=== PATIENT | female | born 1990 | race Caucasian/White ===

== ENCOUNTER 2017-12-16 15:45 | Emergency (ER) | payer MEDICAID ==
[~2017-12-16] VITALS: Ht 160 cm; Wt 52.2 kg
[2017-12-16 16:03] LABS: URINE BILIRUBIN NEGATIVE (Negative); URINE BLOOD NEGATIVE (Negative); URINE CLARITY CLEAR; URINE COLOR YELLOW; URINE GLUCOSE-RANDOM NEGATIVE (Negative); URINE KETONES NEGATIVE (Negative); URINE LEUKOCYTES-REFLEX NEGATIVE (Negative); URINE NITRITE-REFLEX NEGATIVE (Negative); URINE PROTEIN NEGATIVE (Negative); URINE SPECIFIC GRAVITY 1.025 (1.005-1.030); URINE UROBILINOGEN 0.2 E.U./dl (0.2-1.0)
[2017-12-16] MEDS ORDERED: MIRALAX17 GM PO (16:53)
[2017-12-16] MEDS ORDERED: CARAFATE 1 GM TA1 GM PO (16:53)
[2017-12-16] MEDS ORDERED: BENTYL 20 MG TA20 M1 PO (16:53)
[2017-12-16 17:06] VITALS: BP 125/86
== END 2017-12-16 17:06 | disposition home or self-care (01) ==
LOC: M.ERS 15:45
PROVIDERS: Nurse Practitioner Family
DX: K59.00 Constipation, unspecified (principal)

== ENCOUNTER 2018-08-28 19:24 | Emergency (ER) | payer MEDICAID, OTHER ==
[~2018-08-28] VITALS: Ht 160 cm; Wt 54.4 kg
[~2018-08-28 19:24] MED LIST: BENTYL 20 MG TA20 M1 PO; CARAFATE 1 GM TA1 GM PO; MIRALAX17 GM PO
[2018-08-28] MEDS ORDERED: ADDERALL 20 MG20 MG PO (19:37)
[2018-08-28] MEDS ORDERED: ACETAMINOPHEN-1 EAC1 PO (21:09)
[2018-08-28] MEDS ORDERED: IBUPROFEN 600600 M1 PO (21:09)
[2018-08-28 21:40] VITALS: BP 129/85
== END 2018-08-28 21:40 | disposition home or self-care (01) ==
LOC: M.ERS 19:24
DX: S92.531A Displaced fracture of distal phalanx of right lesser toe(s), initial encounter for closed fracture (principal); S09.8XXA Other specified injuries of head, initial encounter; Y04.8XXA Assault by other bodily force, initial encounter; Y93.89 Activity, other specified; Y92.89 Other specified places as the place of occurrence of the external cause; Y99.8 Other external cause status

== ENCOUNTER 2018-09-30 22:53 | Emergency (ER) | payer OTHER, MEDICAID ==
[~2018-09-30] VITALS: Ht 160 cm; Wt 54.4 kg
[~2018-09-30 22:53] MED LIST changes: +ACETAMINOPHEN-1 EAC1 PO; +ADDERALL 20 MG20 MG PO; +IBUPROFEN 600600 M1 PO
[2018-09-30] MEDS ORDERED: PERCOCET PO (23:04)
[2018-09-30] MEDS ORDERED: NORCO 10-325 T1 EACH PO (23:09)
[2018-09-30] MEDS ORDERED: VALIUM5 MG (23:10)
[2018-09-30] MEDS ORDERED: PHENERGAN 25 MG25 M1 (23:10)
[2018-10-01 01:18] VITALS: BP 105/64
== END 2018-10-01 01:18 | disposition home or self-care (01) ==
LOC: M.ERS 22:53
DX: M54.5 Low back pain (principal)

== ENCOUNTER 2021-05-01 18:50 | Emergency (ER) | payer OTHER, MEDICAID ==
[~2021-05-01] VITALS: Ht 160 cm; Wt 50.8 kg
[~2021-05-01 18:50] MED LIST changes: +NORCO 10-325 T1 EACH PO; +PERCOCET PO; +PHENERGAN 25 MG25 M1; +VALIUM5 MG
[2021-05-01] MEDS ORDERED: TOPROL XL25 MG PO (19:02)
[2021-05-01] MEDS ORDERED: ADDERALL 10 MG10 MG PO (19:02)
[2021-05-01 19:59] LABS: ABSOLUTE LYMPHOCYTES 1.2 thou/uL (0.8-5.3); ABSOLUTE MONOCYTES 0.3 thou/uL (0.0-1.2); ABSOLUTE NEUTROPHILS 3.7 thou/uL (1.6-8.1); BASOPHILS 0.8 %; EOSINOPHILS 0.3 %; HEMATOCRIT 40.8 % (37.0-47.0); LYMPHOCYTES 23.5 %; MCH 33.6 pg (26.0-34.0); MCHC 34.2 g/dL (28.0-37.0); MCV 98.1 fL (80.0-100.0); MONOCYTES 5.6 %; MPV 7.9 fl. (7.2-11.1); NUCLEATED RBCS 0 /100WBC; PLATELET COUNT* 246 thou/uL (150-400); POLYS 69.8 %; RBC 4.16 mil/uL (4.20-5.00); RDW-CV 12.2 % (10.5-14.5); WBC 5.3 thou/uL (4.0-11.0)
[2021-05-01 20:08] LABS: URINE BILIRUBIN NEGATIVE (Negative); URINE BLOOD 1+ (Negative); URINE COLOR YELLOW; URINE GLUCOSE-RANDOM NEGATIVE (Negative); URINE KETONES TRACE (Negative); URINE LEUKOCYTES-REFLEX NEGATIVE (Negative); URINE NITRITE-REFLEX NEGATIVE (Negative); URINE PROTEIN NEGATIVE (Negative); URINE SPECIFIC GRAVITY 1.015 (1.005-1.030); URINE UROBILINOGEN 0.2 E.U./dl (0.2-1.0)
[2021-05-01 20:10] LABS: URINE CLARITY HAZY
[2021-05-01 20:11] LABS: ALBUMIN 4.3 g/dL (3.4-5.0); CALCIUM 8.9 mg/dL (8.5-10.1); CREATININE 0.6 mg/dL (0.6-1.3); POTASSIUM 3.3 mmol/L (3.5-5.1); TOTAL BILIRUBIN 0.9 mg/dL (<0.1-1.0)
[2021-05-01 20:17] LABS: AMP/METHAMP POSITIVE (Negative); BARBITURATES Negative (Negative); BENZODIAZEPINES Negative (Negative); COCAINE Negative (Negative); METHADONE Negative (Negative); OPIATES Negative (Negative); PCP Negative (Negative); THC Negative (Negative)
[2021-05-01 20:18] LABS: BACTERIA-REFLEX None Seen /HPF (None Seen); CASTS None Seen /LPF (None Seen); CRYSTALS None Seen /LPF (None Seen); SQUAMOUS >10 Many /LPF (0-3); URINE RBC 0-2 Rare /HPF (0-2); URINE WBC-REFLEX None Seen /HPF (0-5)
[2021-05-01 20:38] LABS: INFLUENZA A ANTIGEN Negative (Negative); INFLUENZA B ANTIGEN Negative (Negative)
[2021-05-01] MEDS ORDERED: HYDROXYZINE HCL25 M2 PO (22:29)
[2021-05-01 22:56] VITALS: BP 124/70
--- NOTE | 2021-05-02 11:10 | EKG ---
[place] [address] ELECTROCARDIOGRAM REPORT Name: MORA FRANKEL Room: [facility]#: [id number] Admission: 05/01/21 Attend Phys: Discharge: 05/01/21 Date of : 89 Date of Service: 05/01/211932 Report #: [id number] THIS REPORT FOR: //name// [facility] ED Test Date: 2021-05-01 Test Time: 19:33:20 Pat Name: MORA FRANKEL Department: Room: Gender: F Tie Puller: : 1990 Requested By: Stefani Aguiar Order Number: [id number] MD: Henri Walters Measurements Intervals Rhame Rate: 90 P: 85 KS: 138 QRS: 85 QRSD: 100 T: 67 QT: 372 QTc: 455 Interpretive Statements Sinus rhythm Right atrial enlargement No previous ECG available for comparison Electronically Signed On 05-02-2021 11:10:26 [employer] by Henri Walters [email or web address] <ELECTRONICALLY SIGNED> By: Henri Walters MD, LOCATED WITHIN [facility] 05/02/21 1110 32 32 Henri Walters MD, FACC /EPI
== END 2021-05-01 22:57 | disposition home or self-care (01) ==
LOC: M.ERS 18:50
PROVIDERS: Personal Emergency Response Attendant
DX: I16.0 Hypertensive urgency (principal); Z20.822 Contact with and (suspected) exposure to COVID-19; R42 Dizziness and giddiness; I10 Essential (primary) hypertension; R41.0 Disorientation, unspecified; F90.9 Attention-deficit hyperactivity disorder, unspecified type; Z79.899 Other long term (current) drug therapy